=== PATIENT | male | born 1995 | race Caucasian/White ===

== ENCOUNTER 2017-06-13 16:46 | Emergency (ER) | payer OTHER ==
[~2017-06-13] VITALS: Ht 170.2 cm; Wt 68.0 kg
[2017-06-13 16:47] VITALS: BP 133/80; PULSE 72; RESP 16; TEMP 99; O2SAT 98
--- NOTE | 2017-06-13 16:55 | PD ---
Physical Exam Time Seen by Provider: 16:52 Narrative 21yo M c/o nonpainful "abscess" to his penis for a couple weeks. Denies drainage from the abscess. Denies fever, vomiting. Patient seen in triage. VS reviewed. Awaiting bed placement. Data Data Last Documented VS Vital Signs Date Time Temp Pulse Resp B/P Pulse Ox O2 Delivery O2 Flow Rate FiO2 06/13/17 16:47 99.0 72 16 133/80 98 Room Air MDM Supervised Visit with OVI: Martine Bosch Jun 13, 2017 16:55
--- NOTE | 2017-06-13 17:19 | PD ---
HPI Chief Complaint: Skin Problem Time Seen by Provider: 17:09 Travel History International Travel<30 days: No Contact w/Intl Traveler<30days: No Traveled to known affect area: No History of Present Illness HPI 21-year-old [place] male presents to emergency department with questionable lesion on his penis. He states he just this area after a reported insect bite 3 weeks ago. He has small nontender pink lesions to the shaft of the penis. He feels that they are more than they're used to be. He states his current partner has no symptoms. He has no previous history of STD according to him. He has no other symptoms. He has no known drug allergies. [facility] Social History Alcohol Use: Yes Tobacco Use: No Substance Use: No Review of Systems General / Constitutional: No: Fever Eyes: No: Visual changes HENT: No: Headaches Cardiovascular: No: Chest Pain or Discomfort Respiratory: No: Shortness of Breath Gastrointestinal: No: Abdominal Pain Genitourinary: No: Dysuria Musculoskeletal: No: Pain Skin: Positive Rash Neurologic: No: Weakness Psychiatric: No: Depression Endocrine: No: Polydipsia Hematologic/Lymphatic: No: Easy Bruising Physical Exam Narrative GENERAL: Patient is in no acute distress. SKIN: Warm and dry. Normal color. Normal turgor. Patient has an area on the right distal ulnar side of the shaft of the penis with flashy small growth consistent with HPV. There are no other significant findings. HEAD: Atraumatic. Normocephalic. EYES: Pupils equal and round. No scleral icterus. No injection or drainage. ENT: No nasal bleeding or discharge. Mucous membranes pink and moist. Pharynx is clear. Airway is patent. CARDIOVASCULAR: Regular rate and rhythm. RESPIRATORY: No accessory muscle use. GASTROINTESTINAL: Abdomen soft, non-tender, nondistended. Hepatic and splenic margins not palpable. MUSCULOSKELETAL: Extremities without clubbing, cyanosis, or edema. No obvious deformities. NEUROLOGICAL: Awake and alert. No obvious cranial nerve deficits. Motor grossly within normal limits. Five out of 5 muscle strength in the arms and legs. Normal speech. PSYCHIATRIC: Appropriate mood and affect; insight and judgment normal. Data Data Last Documented VS Vital Signs Date Time Temp Pulse Resp B/P Pulse Ox O2 Delivery O2 Flow Rate FiO2 06/13/17 16:47 99.0 72 16 133/80 98 Room Air MDM Medical Decision Making Medical Screen Exam Complete: Yes Emergency Medical Condition: Yes Differential Diagnosis Exposure to sexually transmitted disease. HPV. Genital warts. Narrative Course Based on my exam I feel the patient has genital warts. Patient is given information regarding HPV. Recommend close follow-up with his primary care physician or the health department. Patient is given a prescription for Aldara 5% cream to be used as directed. Patient can follow-up here as needed. 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 Patient Instructions: General Instructions, Genital Warts (ED), HPV (Human Papillomavirus) (GEN) Additional Instructions: Based on my exam I feel the patient has genital warts. Patient is given information regarding HPV. Recommend close follow-up with his primary care physician or the health department. Patient is given a prescription for Aldara 5% cream to be used as directed. Patient can follow-up here as needed. Med/Other Pt SpecificInfo: Prescription(s) given Disposition: 01 DISCHARGE HOME Condition: Stable Javad Diaz Jun 13, 2017 17:19
[2017-06-13] MEDS ORDERED: [UNRECOGNIZED DRUG - CODE] TOPICAL (17:20)
== END 2017-06-13 18:03 | disposition home or self-care (01) ==
LOC: NEPK 16:46
DX: N48.29 Other inflammatory disorders of penis (principal); B97.7 Papillomavirus as the cause of diseases classified elsewhere
CPT/HCPCS: 99283